=== PATIENT | male | born 1935 | race Caucasian/White ===

== ENCOUNTER 2016-07-01 07:14 | Day surgery (SDC) | payer MEDICARE, BC ==
[2016-07-01 08:29] LABS: BASO % 0.5 % (0-2); EOS % 2.9 % (0-7); EOSINOPHIL ABSOLUTE COUNT 0.2 tho/cmm (0.0-0.7); HCT-HEMATOCRIT 39.2 % (36.0-53.5); HGB-HEMOGLOBIN 12.5 gm/dl (13.5-17.0); LYMPH % 34.5 % (20-45); LYMPH ABSOLUTE COUNT 2.1 tho/cmm (0.8-4.5); MCH (MEAN CORPUSCULAR HGB) 31.3 pg (28.0-32.0); MCHC MEAN CORPUSCULAR HGB CONC 31.9 % (32.0-36.0); MCV (MEAN CELL VOLUME) 98.2 fl (82.0-96.0); MONO % 12.8 % (0-12); MONOCYTE ABSOLUTE COUNT 0.8 tho/cmm (0.0-1.2); NEUTROPHILS % 49.3 % (40-80); PLATELET COUNT 198 tho/cmm (150-450); RED BLOOD COUNT 3.99 mil/cmm (4.40-5.70); RED CELL DISTRIBUTION WIDTH 12.9 % (12.4-16.4); WHITE BLOOD COUNT 6.2 tho/cmm (4.0-10.0)
[2016-07-01 08:37] LABS: INR 1.1 INR (0.9-1.1); PROTHROMBIN TIME 12.2 SECONDS (9.0-13.6)
[2016-07-01] MEDS ORDERED: ZZZQUIL50 MG/30 M PO (08:51)
[2016-07-01] MEDS ORDERED: POTASSIUM CHLO10 ME2 PO (08:55)
[2016-07-01] MEDS ORDERED: CALCIUM CITRAT1 EA25 PO (08:56)
[2016-07-01] MEDS ORDERED: ACID CONTROL150 M2 PO (08:57)
[2016-07-01] MEDS ORDERED: SPIRIVA18 MC1 INH (08:58)
[2016-07-01] MEDS ORDERED: STOOL SOFTENER100 M3 PO (08:59)
[2016-07-01] MEDS ORDERED: FLONASE ALLERG9.9 ML (08:59)
[2016-07-01] MEDS ORDERED: PRAVACHOL40 M1 PO (09:00)
[2016-07-01] MEDS ORDERED: SYNTHROID137 MC1 PO (09:04)
[2016-07-01] MEDS ORDERED: SYMBICORT 80-41 PUFF INH (09:04)
[2016-07-01] MEDS ORDERED: LASIX40 M1 PO ×2 (09:04→10:45)
[2016-07-01] MEDS ORDERED: GARLIC OIL1000 M1 PO (09:05)
[2016-07-01] MEDS ORDERED: OMEPRAZOLE40 M2 PO (09:06)
[2016-07-01] MEDS ORDERED: MELATONIN5 M7 PO (09:06)
[2016-07-01] MEDS ORDERED: FISH OIL 1,2001 EAC4 PO (09:08)
[2016-07-01] MEDS ORDERED: GLUCOSAMINE HC500 M1 PO (09:09)
[2016-07-01] MEDS ORDERED: MULTIPLE VITAM1 EAC4 PO (10:42)
[2016-07-01] MEDS ORDERED: CALCIUM ANTACI300 MG PO (10:49)
== END 2016-07-01 12:00 ==
LOC: SHSC 07:14
PROVIDERS: Radiology Diagnostic Radiology
PROC: 07BD3ZX Excision of Aortic Lymphatic, Percutaneous Approach, Diagnostic (ICD-10-PCS; principal; 2016-07-01)
DX: C77.2 Secondary and unspecified malignant neoplasm of intra-abdominal lymph nodes (principal); I10 Essential (primary) hypertension; E78.5 Hyperlipidemia, unspecified; J45.909 Unspecified asthma, uncomplicated; M19.90 Unspecified osteoarthritis, unspecified site; I49.9 Cardiac arrhythmia, unspecified; Z85.46 Personal history of malignant neoplasm of prostate; Z95.0 Presence of cardiac pacemaker; Z79.899 Other long term (current) drug therapy; Z90.49 Acquired absence of other specified parts of digestive tract; Z98.890 Other specified postprocedural states
CPT/HCPCS: J2250; J3010